=== PATIENT | female | born 1980 | race Caucasian/White ===

== ENCOUNTER 2024-06-25 07:28 | Emergency (ER) | payer BC, SELFPAY ==
--- NOTE | ~2024-06-25 | CT_ITS ---
Non-contrast Head CT History: Head injury Technique: Axial non-contrast imaging of the brain was performed. Dose reduction technique was used on this scan by utilizing automated exposure control and iterative reconstruction technique. The dose -length product (DLP) was 605.33 mGy-cm. Findings: There is no evidence of intracranial hemorrhage, mass lesion, or acute infarct. Brain par enchyma appears normal. The ventricles and subarachnoid spaces are normal in size. The calvarium ap pears normal. The visualized paranasal sinuses and mastoid air cells are clear. Impression: No significant abnormality seen. Reviewed, dictated and finalized at location . Impression: No significant abnormality seen.
--- NOTE | ~2024-06-25 | CT_ITS ---
Noncontrast CT scan of the cervical spine Technique: Multiple contiguous axial [address] images of the cervical spine were obtained and rec onstructed in 2D sagittal and coronal planes on the acquisition scanner. Dose reduction technique was used on this scan by utilizing automated exposure control, adjustment of the mA and/or kV according to patient size. The dose-length product (DLP) was 432.68 mGy-cm. Clinical History: Pain Findings: No fractures or dislocations. There is reversal normal cervical lordosis. There is advance d degenerative disc narrowing at C5-C6, with moderate degenerative disc narrowing at C6-C7. There is bilateral neural foraminal narrowing at C5-C6. No prevertebral soft tissue swelling. Impression: No fracture or subluxation of the cervical spine. Moderate degenerative change at C5-C6, as above. Reviewed, dictated and finalized at [facility]. Impression: No fracture or subluxation of the cervical spine. Moderate degenerative change at C5-C6, as above.
--- OUTSIDE RECORDS SUMMARY | 2024-06-25 07:32 | XMS_ITS | Data Portability ---
Author Organization [facility] [place] Address [address] [place] [address] [place] [address] Assessment Encounter Date Assessment Date Assessment LastModified by Organization Details LastModified Time 06/29/2023 06/29/2023 Annual gynecological exam performed. Patient will come back in a year unless there are new symptoms. [email or web address] Not available 06/29/2023 16:39:05 Plan of Treatment Reminders Order Date Submit Date Provider Last Modified By Organization Details Last Modified Time Details Appointments None recorded. Lab None recorded. Referral None recorded. Procedures None recorded. Surgeries None recorded. Imaging MAMMO, screening, digital, bilateral 2023 024 [facility], [address], [place], [address], 4 05:01:05 Medication Orders None recorded. Patient TargetsNo targets recorded. Patient InstructionsNo instructions recorded. Reason for Referral None Reported. Results Created Date Observation Date Name Description Value Unit Range Abnormal Flag Note LastModifiedBy Organization Detail LastModifiedTime 06/30/19 24 06/30/2023 IMAGE GUIDE D PAP AND HPV REGAR DLESS image guided Pap, HPV regardless of Pap result SEE RESULT S BELOW CASE REPOR T: Cytol ogy Gynec ologi toni Repor t Case: [id number] Autho rosanan g Provi jelani: Mahogany Gil MD Colle cted: 06/29 0806 Order ing Locat ion: [place] [facility] Recei linda: 06/30 0211 First Scree n: Lew Stock , CT Rescr een: Anthony Covarrubias ed, CT Speci men: Scree karl Pap - Image d, Cervi x STATE MENT OF ADEQU ACY: Satis facto ry for evalu ation Trans forma tion zone compo nent absen t The absen ce of an endoc ervic al compo nent was confi rmed by an addit david cherry. FINAL DIAGN OSIS: Negat della for Intra epith elial Lesio n or Kateryna chahal (NIL) . Elect chaparro dean john d by Cristian montoya, Anthony zuleta, CT on 024 at 7:42 PM ----- ----- ----- ----- ----- ----- ----- ----- ----- ----- ----- ----- ----- ----- ----- ----- ----- ---- HPV RESUL TS: HPV mRNA E6/E7 : No HPV mRNA Detec jermaine NOTE: This high risk HPV mRNA assay detec ts fourt een high- risk HPV types (16, 18, 31, 33, 35, 39, 45, 51, 52, 56, 58, 59, 66, 68) witho ut diffe renti ation . COMME NT: This speci men was revie wed by a Cytot echno logis t and/o r Patho logis t (as indic ated in this repor t) after evalu ation using the Thinp rep Imagi ng Syste m. CLINI TONI INFOR MATIO N: Menst rual Statu s: LMP (if appli cable ): Clini toni Histo ry/Pr eviou s Pap: Type of Neopl micha (if appli cable ): Signi fican t Clini toni Findi ngs: Other Histo ry: Hormo cruz (if appli cable ): PAP EDUCA NAOMI L NOTE: The Pap Test is a scree karl test with an inher ent false negat della rate. Liqui d-bas ed sampl ing may decre ase, but will not elimi travis, false negat della resul ts. A negat della resul t does not precl ude the prese nce and/o r devel opmen t of disea se, since the prese nce of abnor mal cells in the sampl e depen ds on the locat ion of the lesio n and sampl ing techn ique. Steve nued regul ar scree karl is the best metho d of cance r preve ntion . If repor jermaine cytol ogic findi ng do not corre late with physi toni and/o r histo rical findi ngs, furth er inves tigat ion is recom francisco j d, as clini julissa warra nted. Not Available [facility] (Lab) [address], [place], [address], 07/06/2023 20:45:34 Result Notes None recorded. Procedures Surgical History Date Name Laterality Status Provider Name and Address Organization Details Recorded Time section completed [facility] 06/29/2023 16:46:32 Imaging Results None recorded. Procedure Notes None recorded. Medical Equipment None Reported. Allergies No known drug allergies Medications Name Sig Start Date Stop Date Status Note LastModified by Organization Details LastModified Time DIANN (28) 3 mg-0.02 mg tablet Take 1 tablet every day by oral route. active Not Available Not Available No t Available Vitals Date Recorded Body weight Body mass index (BMI) Body height Systolic blood pressure Diastolic blood pressure Provider Name and Address Organization Details Last Updated DateTime 06/29/2023 429627.8 g 37 kg/m2 170.18 cm 127 mm[Hg] 83 mm[Hg] [facility] 16:40:25 Social History Question Answer Notes LastModified by Organizat ion Details LastModified Time In The 14 Days Before Symptom Onset, Have You Had Close Contact With A Laboratory-confirmed COVID-19 While That Case Was Ill? No Information not available 06/29/2023 In The 14 Days Before Symptom Onset, Have You Had Close Contact With A Person Who Is Under Investigation For COVID-19 While That Person Was Ill? No Information not available 06/29/2023 Have You Been To An Area Known To Be High Risk For COVID-19? No Information not available 06/29/2023 Sex: Unknown Functional Status None recorded. Mental Status None recorded. Family History Relationship Description Onset Age of this Age Resolved Age Notes LastModified by Organization Details LastModified Time Father No current problems or disability [email or web address] Not available 06/28 16:45:53 Mother No current problems or disability dswayne Not available 06/28 16:45:53 Maternal Grandmother Type 2 diabetes mellitus dswayne Not available 2023 16:46:06 Sister Prediabetes dswayne Not availab le 06/29/2023 16:46:18 Medical History Condition Response Allergies (Food, seasonal, environmental ) N Other N Breast Cancer N Drug/Latex Allergies/Reactions N Blood Transfusion N Dermatologic Disorders N Lung Disease N Defects or Inherited Disease N Breast Problem N Gestational Diabetes N Hematologic disorders N Anesthesia Complications N History of STI Y Deep Vein Thrombosis N Polycystic ovary syndrome N Anxiety Disorder N Autoimmune disease N Arthritis N Infertility N Polyps N Acid Reflux (GERD) N History of abnormal pap N Cancer N Stroke N Varicosities N Neurologic/Epilepsy N Endometriosis N High Cholesterol N Headaches N Fibromyalgia N Kidney Disease N Heart Problems N Kidney or Bladder Problems N Thyroid Problems N GI Problems N Eating Disorder N Anemia N Art (IVF or FET) N Psychiatric Illness N Ovarian Cancer N Diabetes N Pulmonary (TB, Asthma) N Hepatitis/Liver Disease N No Past Medical History N Eczema N Urinary Tract Infection N Abuse/Domestic Violence N Asthma N Trauma/Violence N Depression/ depression N Heart Disease N Pre-Eclampsia N Hypertension N Osteoporosis N Thrombophilias N Gynecological History Statement/Question Response Abnormal Pap Y Date of Last Mammogram Date of LMP STIs/STDs Y HPV Vaccine N Current Control Method BCPs Sexually Active? N Date of Last Pap Smear Sexual Problems? N Desired Control Method None LMP Unknown Obstetrics History GPAL:G 2 P 2 0 0 2 Type Value Full Term 2 Living 2 Total 2 Past Encounters Encounter ID Performer Location Encounter Start Date Encounter Closed Date Diagnosis/Indication Diagnosis SNOMED-CT Code Diagnosis ICD10 Code Diagnosis Note [id number] GUY INMAN MD [facility] [address] [address] 06/29/2023 16:26:58 07/01/2023 13:41:47 Screening mammography 59894826 Z12.31 Gynecologi c examination 49598808 Z01.419 Z11.51 Well woman care- Cervical cancer screening: Pap smear obtained today, will follow up on the results with the patient as they become available- Breast cancer screening: mammogram ordered- Colon cancer screening: does not qualify- HPV immunizati on: desires- STD testing: declines- hereditary cancer screening: does not qualify for testing Health Concerns Section Related Observation LastModified by Organization Detai ls LastModified Time None Recorded Concern Status LastModified by Organization Details LastModified Time None Recorded Advance Directives Directive None Recorded Payers Encounter Date Sequence Insurance Name Policy Number Policy Urrutia Covered Member ID Urrutia Member ID Guarantor Name 06/29/2023 1 [employer]: ([place]) [id number] Crystal Greenwoodjustine [id number] Crystal Greenwoodjustine Notes Date Note Type Note Provider Name and Address Organization Details Recorded Time 06/29/2023 text/html Presents today f or her annual well-woman exam. Last [employer] a few years ago. Denies abnormal vaginal discharge. She is rarely sexually active and reports increased vaginal dryness. She is not concerned about this problem. She is using Rosmer[employer] for contraception, and she states that she is satisfied with this method. She has not noticed any changes or masses in her breasts. Amenorrheic since 10 year old was born, on [place]. Has hx of tubal ligation. No intermenstrual spotting. Hx of abnormal pap smear, at age 19, normal since then. No PMH. PSH: c section x2, tubal ligation, cryotherapy for abnormal pap smear FamHx: no fam hx of breast, colon or ovarian cancer GUY INMAN MD [address], [place], [address], [facility] 06/30/2023 21:09:03 OBGyn Episode Ob Episode Information Episode Created Date Number of Fetuses Patient Bloodtype Patient rh Status Prepregnancy Weight lbs Domestic Partner Domestic Partner Phone Father Name Linux System Engineer Status 06/29/19 24 1 CLOSED Fetus Data First Name Last Name Admitted to NICU Weight (g) Sex Living Outcome Pediatric Complications Fetus ID Race Codes Race Delivery Type 3175.14 4 M Full Term [id number] Repeat Augusto Calculation Initial Augusto Date Initial Exam Date Initial Exam Provider Initial Ultrasound Date Last Menstrual Period Date Ultra Sound Weeks Gestation 0 Eighteen To Twenty Week Augusto Update Ultra Sound Date Fundal Height At Umbil Quickening Date Ultra Sound Latest Weeks Gestation Final Augusto Confirmed By Final Augusto Confirmed Date Final Augusto Date Ultra Sound Latest Days Gestation 0 0 Menstrual History Last Menstrual Date Menses Monthly On Bcp Conception Prior Menses Frequency Hcg Plus Date Menarche Onset Age Delivery Information Delivery Date Delivery Type Labor Anesthesia Weeks Gestation Incision Type Labor Labor Length Hrs Delivered By Post Complications Tubal Sterilization Discharge Date Comments 1 Discharge Information Feeding Method Contraceptive Method Maternal HG B and HCT Levels Ob Episode Information Episode Created Date Number of Fetuses Patient Bloodtype Patient rh Status Prepregnancy Weight lbs Domestic Partner Domestic Partner Phone Father Name Linux System Engineer Status 06/29/19 24 1 CLOSED Fetus Data First Name Last Name Admitted to NICU Weight (g) Sex Living Outcome Pediatric Complications Fetus ID Race Codes Race Delivery Type 3089.86 [id number] F Full Term [id number] Primary Augusto Calculation Initial Augusto Date Initial Exam Date Initial Exam Provider Initial Ultrasound Date Last Menstrual Period Date Ultra Sound Weeks Gestation 0 Eighteen To Twenty Week Augusto Update Ultra Sound Date Fundal Height At Umbil Quickening Date Ultra Sound Latest Weeks Gestation Final Augusto Confirmed By Final Augusto Confirmed Date Final Augusto Date Ultra Sound Latest Days Gestation 0 0 Menstrual History Last Menstrual Date Menses Monthly On Bcp Conception Prior Menses Frequency Hcg Plus Date Menarche Onset Age Delivery Information Delivery Date Delivery Type Labor Anesthesia Weeks Gestation Incision Type Labor Labor Length Hrs Delivered By Post Complications Tubal Sterilization Discharge Date Comments 8 Discharge Information Feeding Method Contraceptive Method Maternal HG B and HCT Levels
[2024-06-25 07:33] VITALS: BP 134/75; PULSE 79; RESP 18; TEMP 36.4; O2SAT 96
--- OUTSIDE RECORDS SUMMARY | 2024-06-25 07:33 | XMS_ITS | Data Portability ---
Author Organization [facility] [employer], Main Office Address [address] [place] [address] Care Team Providers Care System Dispatcher Name Role Phone HUA FUNG Primary Care Provider HUA FUNG Referring Provider [phone] Assessment No assessment recorded. Plan of Treatment Reminders Order Date Submit Date Provider Last Modified By Organization Details Last Modified Time Details Appointments None recorded. Lab HbA1c (hemoglobin A1c), blood 2024 025 [facility], [address] , [place], [address], 5 10:05:55 lipid panel, serum 2024 025 [facility], [address], [place], [address], 5 10:05:56 TSH, serum or plasma 2024 025 [facility], [address], [place], [address], 5 10:05:55 CMP, serum or plasma 2024 025 [facility], [address], [place], [address], 5 10:05:56 CBC w/ auto diff 2024 025 [facility], [address], [place], [address], 5 10:05:54 uric acid, serum or plasma 2023 024 [email or web address] [facility], [address], [place], [address], 4 08:27:58 lipid panel, serum 2023 024 [email or web address] [facility], [address], [place], [address], 4 08:27:59 HbA1c (hemoglobin A1c), blood 2023 024 [email or web address] [facility], [address], [place], [address], 4 08:27:59 CMP, serum or plasma 2023 024 [email or web address] [facility], [address], [place], [address], 4 08:27:59 lipid panel, serum [address] (Lab), [address] [place], [address], 3 15:21:02 TSH, serum or plasma [address] (Lab), [address] [place], [address], 3 15:23:21 CBC [address] (Lab), [address] [place], [address], 3 15:24:15 CMP, serum or plasma [address] (Lab), [address] [place], [address], 3 15:23:47 Referral None recorded. Procedures None recorded. Surgeries None recorded. Imaging MAMMO, screening, digital, bilateral 2024 025 [email or web address] [facility], [address], [address] [address], [place], [address], 5 10:24:38 Medication Orders Wegovy 0.5 mg/0.5 mL subcutaneou s pen injector 2024 025 ANNELISE [id number], [address], [place], [id number], 5 10:06:07 triamcinolo ne acetonide 40 mg/mL suspension for injection 2024 025 [email or web address] Not available 5 15:22:52 Wegovy 0.5 mg/0.5 mL subcutaneou s pen injector 2023 024 [email or web address] 7 [facility] [address] In [facility], [address] [place], [address], 5 09:48:04 Creon 36,000 unit-114,00 0 unit-180,00 0 unit capsule,del ayed release 2022 023 [email or web address] 5 [id number], [address], [place], [id number], 3 14:48:27 Zenpep 40,000 unit-126,00 0 unit-168,00 0 unit capsule,del ayed release 2022 023 [email or web address] 7 [facility][id number], [address], [place], [id number], 5 09:49:19 Wegovy 0.25 mg/0.5 mL subcutaneou s pen injector 2022 023 [email or web address] 7 [id number], [address] [facility], [place], [place], [id number], 09:48:00 Patient Targets Encounter Date Encounter Id Patient Goals Patient Target Last Modified By Organization Details Last Modified Time [facility]vs pharmy ginger chowdary [email or web address] Not available 07/06/2023 16:06:45 Patient InstructionsNo instructions recorded. Reason for Referral None Reported. Results Created Date Observation Date Name Description Value Unit Range Abnormal Flag Note LastModifiedBy Organization Detail LastModifiedTime 11/12/19 22 11/17/2021 PAP THINP REP LB, RFX HPV diagnosis: kathy PEÑA FOR INTRA EPITH ALEXSANDER Foss OR SELAM MEIER . Not Available [facility] (Lab) [address] [place], [address], 11/17/2021 10:12:06 11/12/19 22 11/17/2021 PAP THINP REP LB, RFX HPV specimen adequacy: kathy Steinberg Satis factjustine rangel for evalu ation . No endoc ervic al compo nent is id entif ied. Not Available [facility] (Lab) [address] [place], [address], 11/17/2021 10:12:06 11/12/19 22 11/17/2021 PAP THINP REP LB, RFX HPV performed by: kathy john Cytokenzie espino (ASCP ) Not Available [facility] (Lab) [address] [place], [address], 11/17/2021 10:12:06 11/12/19 22 11/17/2021 PAP THINP REP LB, RFX HPV . . Not Available [facility] (Lab) [address] [place], [address], 11/17/2021 10:12:06 11/12/19 22 11/17/2021 PAP THINP REP LB, RFX HPV note: commen t The Pap smear is a scree karl test desig sreekanth to aid in the detec tion of elias ligna nt and malig nant condi tions of the uteri ne cervi x. It is not a diagn ostic proce dure and shoul d not be used as the sole means of detec ting cervi toni cance r. Both false -posi tive and false -nega tive repor ts do occur . . Not Available [facility] (Lab) [address] [place], [address], 11/17/2021 10:12:06 11/12/19 22 11/17/2021 PAP THINP REP LB, RFX HPV test methodology: arabellaen t This liqui d based ThinP rep(R ) pap test was scree sreekanth with the use of an image guide d systida pendleton. Not Available [facility] (Lab) [address] [place], [address], 11/17/2021 10:12:06 11/12/19 22 11/17/2021 PAP THINP REP LB, RFX HPV . commen t The HPV DNA refle x crite alise were not met with this speci men resul t there fore, no HPV testi ng was perfo rmed. . Perfo rmed at: [facility] [place] [address] , [place] [address] Lab Direc tor: Jona prieto MD, Phone : [phone] [facility] (Lab) [address] [place], [address], 11/17/2021 10:12:06 11/12/19 22 11/11/2021 pregn pamella test, urine HCG negati ve Not Available [facility] , [place], [address], 11/11/2021 17:09:52 09/02/19 23 09/01/2022 CBC W/O DIFFE CHERELLE AL white blood cells 10.4 x10'3 /uL 4.2-10 .[address] [facility] (Lab) [address] [place], [address], 09/01/2022 19:31:09 09/02/19 23 09/01/2022 CBC W/O DIFFE RENTI AL red blood cells 4.21 x10'6 /uL 3.80-5 .[address] [facility] (Lab) [address] [place], [address], 09/01/2022 19:31:09/02/19 23 09/01/2022 CBC W/O DIFFE RENTI AL hemoglobin 12.0 g/dL 12.0-1 5.[address] [facility] (Lab) [address] [place], [address], 09/01/2022 19:31:09/02/19 23 09/01/2022 CBC W/O DIFFE RENTI AL hematocrit 37.6 % 35.7-4 5.[address] [facility] (Lab) [address] [place], [address], 09/01/2022 19:31:09/02/1909/01/2022 CBC W/O DIFFE RENTI AL mean red cell volume 89.3 fL 82.0-9 9.[address] [facility] (Lab) [address] [place], [address], 09/01/2022 19:31:09 09/02/19 23 09/01/2022 CBC W/O DIFFE RENTI AL mean red cell hemoglobin 28.5 pg 27.0-3 3.[address] [facility] (Lab) [address] [place], [address], 09/01/2022 19:31:09 09/02/19 23 09/01/2022 CBC W/O DIFFE RENTI AL mean RBC HGB concentratio n 31.9 g/dL 31.0-3 6.[address] [facility] (Lab) [address] [place], [address], 09/01/2022 19:31:09 09/02/19 23 09/01/2022 CBC W/O DIFFE RENTI AL red cell distribution width 13.3 % 11.8-1 5.[address] [facility] (Lab) [address] [place], [address], 09/01/2022 19:31:09 09/02/19 23 09/01/2022 CBC W/O DIFFE RENTI AL platelets 417 x10'3 /uL 150-40 0 high Not Available [facility] (Lab) [address] [place], [address], 09/01/2022 19:31:09 09/02/19 23 09/01/2022 CBC W/O DIFFE RENTI AL mean platelet volume 9.5 fL 9.0-12 .[address] [facility] (Lab) [address] [place], [address], 09/01/2022 19:31:09 09/02/19 23 09/01/2022 COMPR EHENS MARIANA METAB OLIC PANEL sodium 139 mmol/ L 137-14 [address] [facility] (Lab) [address] [place], [address], 09/01/2022 20:03:03 09/02/19 23 09/01/2022 COMPR EHENS MARIANA METAB OLIC PANEL potassium 3.6 mmol/ L 3.5-5. [address] [facility] (Lab) [address] [place], [address], 09/01/2022 20:03:03 09/02/19 23 09/01/2022 COMPR EHENS MARIANA METAB OLIC PANEL chloride 103 mmol/ L 98-[address] [facility] (Lab) [address] [place], [address], 09/01/2022 20:03:03 09/02/19 23 09/01/2022 COMPR EHENS MARIANA METAB OLIC PANEL carbon dioxide 23 mmol/ L 22-[address] [facility] (Lab) [address] [place], [address], 09/01/2022 20:03:03 09/02/19 23 09/01/2022 COMPR EHENS MARIANA METAB OLIC PANEL anion gap 16.6 mmol/ L 14-[address] [facility] (Lab) [address] [place], [address], 09/01/2022 20:03:03 09/02/19 23 09/01/2022 COMPR EHENS MARIANA METAB OLIC PANEL glucose 98 mg/dL 70-[address] [facility] (Lab) [address] [place], [address], 09/01/2022 20:03:03 09/02/19 23 09/01/2022 COMPR EHENS MARIANA METAB OLIC PANEL BUN 13 mg/dL 8-[address] [facility] (Lab) [address] [place], [address], 09/01/2022 20:03:03 09/02/19 23 09/01/2022 COMPR EHENS MARIANA METAB OLIC PANEL creatinine 0.69 mg/dL 0.66-1 .[address] [facility] (Lab) [address] [place], [address], 09/01/2022 20:03:03 09/02/19 23 09/01/2022 COMPR EHENS MARIANA METAB OLIC PANEL GFR >60 Refer ence Range : [place] ge GFR Healt hy Adult : >60 mL/mi n/1.7 3 m2 Chron ic Kidne y Disea se: 15-60 mL/mi n/1.7 3 m2 Kidne y Failu re: <15/m L/min /1.73 m2 www.n iddk. nih.g ov The MDRD study equat ion has not been valid ated in child naresh <18 years of age; pregn ant women ; the elder ly >85 years of age; or in some racia l or ethni c subgr oups, such as Hisrosendo nics. Outsi de the valid ated eliezer eters , estim ated GFR is less accur ate, requi ring clini toni judgm ent on a case- by-ca se basis . Clini toni inter preta tion for other races and ages must be made by the clini dede. The MDRD study equat ion has not been valid ated for the evalu ation of serum creat inine relat ed to nutri allyssa l statu s or medic ation usage . For perso ns <18 years of age, a pedia tric GFR calcu lator is avail able on the [facility] websi te: https ://gurvinder w.tray beckham.o rg/pr ofess ional s/kdo qi/gf r_cal culat or Not Available [facility] (Lab) [address] [place], [address], 09/01/2022 20:03:03 09/02/19 23 09/01/2022 COMPR EHENS MARIANA METAB OLIC PANEL alkaline phosphatase 83 U/L 38-126 Not Available [facility] (Lab) [address] [place], [address], 09/01/2022 20:03:03 09/02/19 23 09/01/2022 COMPR EHENS MARIANA METAB OLIC PANEL alanine aminotransfe rase 26 U/L 0-35 Not Available [facility] (Lab) [address] [place], [address], 09/01/2022 20:03:03 09/02/19 23 09/01/2022 COMPR EHENS MARIANA METAB OLIC PANEL aspartate aminotransfe rase 25 U/L 15-37 Not Available [facility] (Lab) [address] [place], [address], 09/01/2022 20:03:03 09/02/19 23 09/01/2022 COMPR EHENS MARIANA METAB OLIC PANEL bilirubin, total 0.40 mg/dL 0.20-1 .[address] [facility] (Lab) [address] [place], [address], 09/01/2022 20:03:03 09/02/19 23 09/01/2022 COMPR EHENS MARIANA METAB OLIC PANEL calcium 9.5 mg/dL 8.4-10 .[address] [facility] (Lab) [address] [place], [address], 09/01/2022 20:03:03 09/02/19 23 09/01/2022 COMPR EHENS MARIANA METAB OLIC PANEL total protein 7.4 g/dL 6.3-8. [address] [facility] (Lab) [address] [facility] [place], [address], 09/01/2022 20:03:03 09/02/19 23 09/01/2022 COMPR EHENS MARIANA METAB OLIC PANEL albumin 4.4 g/dL 3.4-5. [address] [facility] (Lab) [address] [place], [address], 09/01/2022 20:03:03 09/02/19 23 09/01/2022 COMPR EHENS MARIANA METAB OLIC PANEL globulin 3.0 g/dL 2.6-4. [address] [facility] (Lab) [address] [place], [address], 09/01/2022 20:03:03 09/02/19 23 09/01/2022 COMPR EHENS MARIANA METAB OLIC PANEL A/G ratio 1.5 ratio 1.0-2. [address] [facility] (Lab) [address] [facility] [place], [address], 09/01/2022 20:03:03 09/02/19 23 09/01/2022 LIPID PANEL cholesterol 177 mg/dL 140-19 9 [facility] WINST[facility] NSUS RECOM MENDA TION FOR NYASIA STERO L: ADULT CHILD LOW RISK: <200 <170 BORDE RLINE : <200- 239 ----- HIGH RISK: >240 >200 Not Available [facility] (Lab) [address] [place], [address], 09/01/2022 20:02:52 09/02/19 23 09/01/2022 LIPID PANEL triglyceride s 155 mg/dL 0-150 high NIH W[facility] NSUS REPOR T RECOM MENDA TION FOR TRIGL YCERI JORGE: ADULT CHILD LOW RISK: <150 ----- BODER LINE: 150-1 99 ----- HIGH RISK: >200 ----- Not Available [facility] (Lab) [address] [place], [address], 09/01/2022 20:02:52 09/02/19 23 09/01/2022 LIPID PANEL HDL cholesterol 98 mg/dL 40- Not Available [facility] (Lab) [address] [place], [address], 09/01/2022 20:02:52 09/02/19 23 09/01/2022 LIPID PANEL LDL cholesterol, calculated 48 mg/dL 0-130 [facility] NSUS REPOR T RECOM MENDA TIONS FOR LDL: ADULT CHILD LOW RISK <130 <110 (OPTI MAL LDL) <100 ----- BORDE RLINE : 130-1 59 ----- HIGH RISK: >160 >130 A TRIGL YCERI DE RESUL T >400 INVAL IDATE S THE CALCU LATIO N FOR LDL FRACT IONAT ION - THE LDL RESUL T WILL NOT BE REPOR EWA. Not Available [facility] (Lab) [address] [place], [address], 09/01/2022 20:02:52 09/02/19 23 09/01/2022 TSH thyroid-stim ulating hormone 0.798 uIU/m L 0.465- 4.[address] [facility] (Lab) [address] [place], [address], 09/01/2022 22:49:38 07/18/19 24 07/19/2023 LIPID PANEL , STAND JOSEP cholesterol, total 182 mg/dL <200 normal Not Available [facility] [address] [address] [place], [address], 07/19/2023 02:33:48 07/18/19 24 07/19/2023 LIPID PANEL , STAND JOSEP HDL cholesterol 78 mg/dL > or = 50 normal Not Available [facility] [address] [address] [place], [address], 07/19/2023 02:33:48 07/18/19 24 07/19/2023 LIPID PANEL , STAND JOSEP triglyceride s 155 mg/dL <150 high Not Available [facility] [address] [address] [place], [address], 07/19/2023 02:33:48 07/18/19 24 07/19/2023 LIPID PANEL , STAND JOSEP LDL-choleste rol 79 mg/dL _(toni c) normal Refer ence range : <100 Melia able range <100 mg/dL for prima ry preve ntion ; <70 mg/dL for patie nts with CHD or diabe tic patie nts with > or = 2 CHD risk facto rs. LDL-C is now calcu lated using the Suzanne n-Hop kins davidu lauren n, which is a valid ated novel clintono roro gomez r accur acy than the Fried alfred equat ion in the estim ation of LDL-C . Suzanne foss SS et al. ZACK. 2013; 310(1 9): 2061- 2068 (http ://ed ucati on.Qu Kiera belles. com/f aq/FA Q164) Not Available [facility] [address] [address] [place], [address], 07/19/2023 02:33:48 07/18/19 24 07/19/2023 LIPID PANEL , STAND JOSEP chol/HDLC ratio 2.3 (calc ) <5.0 normal Not Available [address], [address], 07/19/2023 02:33:48 07/18/19 24 07/19/2023 LIPID PANEL , STAND JOSEP non HDL cholesterol 104 mg/dL _(toni c) <130 normal For patie nts with diabe machelle plus 1 major ASCVD risk facto r, treat ing to a non-H DL-C goal of <100 mg/dL (LDL- C of <70 mg/dL ) is consi albarod a thera peuti c optio n. Not Available [address], [address], 07/19/2023 02:33:48 07/18/19 24 07/19/2023 URIC ACID uric acid 5.2 mg/dL 2.5-7. 0 normal Thera peuti c targe t for gout patie nts: <6.0 mg/dL Not Available [address] [place], [address], 07/19/2023 02:33:50 07/18/19 24 07/19/2023 COMPR EHENS MARIANA METAB OLIC PANEL glucose 95 mg/dL 65-139 normal Non-f astin g refer ence inter ab Not Available [address] [place], [address], 07/19/2023 02:33:51 07/18/19 24 07/19/2023 COMPR EHENS MARIANA METAB OLIC PANEL urea nitrogen (BUN) 14 mg/dL 7-25 normal Not Available [address], [address], 07/19/2023 02:33:51 07/18/19 24 07/19/2023 COMPR EHENS MARIANA METAB OLIC PANEL creatinine 0.71 mg/dL 0.50-0 .99 normal Not Available [address], [place], [address], 07/19/2023 02:33:51 07/18/19 24 07/19/2023 COMPR EHENS MARIANA METAB OLIC PANEL eGFR 107 mL/mi n/1.7 3m2 > or = 60 normal Not Available [address], [address], 07/19/2023 02:33:51 07/18/19 24 07/19/2023 COMPR EHENS MARIANA METAB OLIC PANEL BUN/creatini ne ratio SEE NOTE: (calc ) 6-22 Not Repor ewa: BUN and Creat inine are withi n refer ence range . Not Available [address], [address], 07/19/2023 02:33:51 07/18/19 24 07/19/2023 COMPR EHENS MARIANA METAB OLIC PANEL sodium 137 mmol/ L 135-14 6 normal Not Available [address], [address], 07/19/2023 02:33:51 07/18/19 24 07/19/2023 COMPR EHENS MARIANA METAB OLIC PANEL potassium 3.8 mmol/ L 3.5-5. 3 normal Not Available [address], [address], 07/19/2023 02:33:51 07/18/19 24 07/19/2023 COMPR EHENS MARIANA METAB OLIC PANEL chloride 103 mmol/ L 98-110 normal Not Available [facility] [address], [address], 07/19/2023 02:33:51 07/18/19 24 07/19/2023 COMPR EHENS MARIANA METAB OLIC PANEL carbon dioxide 24 mmol/ L 20-32 normal Not Available [facility] [address], [address], 07/19/2023 02:33:51 07/18/19 24 07/19/2023 COMPR EHENS MARIANA METAB OLIC PANEL calcium 9.4 mg/dL 8.6-10 .2 normal Not Available [address], [address], 07/19/2023 02:33:51 07/18/19 24 07/19/2023 COMPR EHENS MARIANA METAB OLIC PANEL protein, total 6.7 g/dL 6.1-8. 1 normal Not Available [address], [address], 07/19/2023 02:33:51 07/18/19 24 07/19/2023 COMPR EHENS MARIANA METAB OLIC PANEL albumin 4.1 g/dL 3.6-5. 1 normal Not Available [address], [address], 07/19/2023 02:33:51 07/18/19 24 07/19/2023 COMPR EHENS MARIANA METAB OLIC PANEL globulin 2.6 g/dL_ (calc ) 1.9-3. 7 normal Not Available [address], [address], 07/19/2023 02:33:51 07/18/19 24 07/19/2023 COMPR EHENS MARIANA METAB OLIC PANEL albumin/glob ulin ratio 1.6 (calc ) 1.0-2. 5 normal Not Available [address], [address], 07/19/2023 02:33:51 07/18/19 24 07/19/2023 COMPR EHENS MARIANA METAB OLIC PANEL bilirubin, total 0.4 mg/dL 0.2-1. 2 normal Not Available [address], [address], 07/19/2023 02:33:51 07/18/19 24 07/19/2023 COMPR EHENS MARIANA METAB OLIC PANEL alkaline phosphatase 62 U/L 31-125 normal Not Available [address] [address] [place], [address], 07/19/2023 02:33:51 07/18/19 24 07/19/2023 COMPR EHENS MARIANA METAB OLIC PANEL AST 15 U/L 10-30 normal Not Available [address] [address] [place], [address], 07/19/2023 02:33:51 07/18/19 24 07/19/2023 COMPR EHENS MARIANA METAB OLIC PANEL ALT 19 U/L 6-29 normal Not Available [address] [address] [place], [address], 07/19/2023 02:33:51 07/18/19 24 07/19/2023 HEMOG LOBIN A1C hemoglobin A1C 5.4 %_of_ total _HGB <5.7 normal For the purpo se of scree karl for the prese nce of diabe machelle: <5.7% Consi stent with the absen ce of diabe machelle 5.7-6 .4% Consi stent with incre ased risk for diabe machelle (pred iabet es) > or =6.5% Consi stent with diabe machelle This assay resul t is consi stent with a decre ased risk of diabe machelle. Curre ntly, no conse nsus exist s davonte francisco use of hemog lobin A1c for diagn osis of diabe machelle in child naresh. Accor ding to Ameri can Diabe machelle Assoc iatio n (ADA) guide lines , hemog lobin A1c <7.0% repre sents optim al contr ol in non-p regna nt diabe tic patie nts. Diffe rent metri cs may apply to speci fic patie nt popul ation s. Stand ards of Medic al Care in Diabe machelle(A DA). This test was perfo rmed on the Emmanuel tyron c503 platf orm. Effec tive , cory prieto in test platf orms from the Abbot t Archi tect to the Emmanuel tyron c503 may have shift ed HbA1c resul ts edmund red to histo rical resul ts. Based on labor atory valid ation testi ng condu cted at [facility] , the Emmanuel platf orm relat mariana to the Abbot t platf orm had an avera ge incre ase in HbA1c value of < or = 0.3%. This diffe rence is withi n accep ewa varia bilit y estab lishe d by the Natio nal [employer]co hemog lobin Stand ardiz ation Progr am. Note that not all indiv idual s will have had a shift in their resul ts and direc t edmund rison s betwe en histo rical and curre nt resul ts for testi ng condu cted on diffe rent platf orms is not recom francisco j d. Not Available [facility] [address] [address] [place], [address], 07/19/2023 02:33:52 Result Notes None recorded. 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 Procedures Surgical History Date Name Laterality Status Provider Name and Address Organization Details Recorded Time cholecystectomy completed Cami Michele RN [facility] [employer] 08/04/2022 14:31:09 Imaging Results None recorded. Procedure Notes None recorded. Medical Equipment None Reported. Allergies No known drug allergies Medications Name Sig Start Date Stop Date Status Note LastModified by Organization Details LastModified Time Cholestyram ine Light 4 gram powder for suspension in a packet MIX 1 PACKET IN LIQUID AND DRINK TWICE DAILY WITH FOOD 06/20 completed Not Available Not Available Not Available betamethaso ne valerate 0.1 % topical cream APPLY TOPICALLY TO THE AFFECTED AREA EVERY DAY NEEDED FOR ITCHING 2024 active Not Available Not Available Not Avai lable triamcinolo ne acetonide 40 mg/mL suspension for injection Take 60 mg every day by injection route as directed for 1 day. 2024 active Not Available Not Available Not Avai lable cholestyram ine (with sugar) 4 gram powder for susp in a packet MIX AND DRINK 1 PACKET PO BID DIRECTED 06/07 completed Not Available Not Available Not Available drospirenon e 3 mg-ethinyl estradiol 0.02 mg tablet TAKE 1 TABLET BY MOUTH DAILY active Not Available Not Available No t Available Cholestyram ine Light 4 gram oral powder MIX 4 GRAMS INTO 8 OUNCES OF LIQUID AND DRINK TWICE DAILY WITH FOOD 2024 active Not Available Not Available Not Avai lable Creon 36,000 unit-114,00 0 unit-180,00 0 unit capsule,del ayed release Take 1 capsule 3 times a day by oral route with meals. 2022 active Not Available Not Available Not Avai lable Zenpep 40,000 unit-126,00 0 unit-168,00 0 unit capsule,del ayed release Take 1 capsule 3 times a day by oral route with meals. 06/20 completed Not Available Not Available Not Available Wegovy 0.25 mg/0.5 mL subcutaneou s pen injector Inject 0.25 mg every week by subcutane ous route for 90 days. 06/20 completed Not Available Not Available Not Available Wegovy 0.5 mg/0.5 mL subcutaneou s pen injector Inject by subcutane ous route for 28 days. active Not Available Not Available No t Available Zepbound 2.5 mg/0.5 mL subcutaneou s pen injector Inject by subcutane ous route for 28 days. active Not Available Not Available No t Available Vitals Date Recorded Body mass index (BMI) Body height Oxygen saturation Oxygen saturation in Arterial blood by Pulse oximetry Heart rate Body temperature Body weight Systolic blood pressure Diastolic blood pressure Provider Name and Address Organization Details Last Updated DateTime 2 36.5 kg/m2 170.18 cm 100 % 100 % 88 /min 97 [degF] 859143. 02 g 140 mm[Hg] 90 mm[Hg] Not Available [facility] 3 22:26:34 Date Recorded Body height Body mass index (BMI) Body weight Body temperature Heart rate Oxygen saturation Oxygen saturation in Arterial blood by Pulse oximetry Systolic blood pressure Diastolic blood pressure Provider Name and Address Organization Details Last Updated DateTime 3 170.18 cm 36.5 kg/m2 839831. 02 g 97.7 [degF] 97 /min 96 % 96 % 142 mm[Hg] 88 mm[Hg] BARBER Patel [facility] [employer] 3 14:29:31 Date Recorded Body height Body mass index (BMI) Body weight Body temperature Heart rate Oxygen saturation Oxygen saturation in Arterial blood by Pulse oximetry Systolic blood pressure Diastolic blood pressure Provider Name and Address Organization Details Last Updated DateTime 3 170.18 cm 35.4 kg/m2 498251. 88 g 98.5 [degF] 94 /min 98 % 98 % 116 mm[Hg] 78 mm[Hg] BARBER Patel [place] [employer] 3 14:21:14 Date Recorded Body height Body mass index (BMI) Body weight Body temperature Heart rate Oxygen saturation Oxygen saturation in Arterial blood by Pulse oximetry Systolic blood pressure Diastolic blood pressure Provider Name and Address Organization Details Last Updated DateTime 4 170.18 cm 35.9 kg/m2 393141. 65 g 97.9 [degF] 94 /min 98 % 98 % 128 mm[Hg] 82 mm[Hg] Becky Burdick RN [facility] 4 16:02:33 Date Recorded Body height Body mass index (BMI) Body weight Body temperature Heart rate Oxygen saturation Oxygen saturation in Arterial blood by Pulse oximetry Systolic blood pressure Diastolic blood pressure Provider Name and Address Organization Details Last Updated DateTime 5 170.18 cm 37.1 kg/m2 461101. 39 g 97.3 [degF] 81 /min 97 % 97 % 136 mm[Hg] 78 mm[Hg] Luz Garnica CNA [facility] [place] [facility] 5 09:47:17 Social History Question Answer Notes LastModified by Organizat ion Details LastModified Time Tobacco Smoking Status Never Smoker Not Available [facility] 05/05/2022 22:26:11 What Is Your Level Of Alcohol Consumption? Occasional [id number] Information not available 05/05/2022 What Is Your Level Of Caffeine Consumption? Occasional [id number] Information not available 05/05/2022 What Type Of Diet Are You Following? REGULAR [id number] Information not available 05/05/2022 Are You Following A Low Salt Diet? No [id number].[id number] Information not available 05/05/2022 Have You Ever Been Counseled For Unhealthy Alcohol Use? No [id number].[id number] Information not available 05/05/2022 Do You Feel Stressed (tense, Restless, Nervous, Or Anxious, Or Unable To Sleep At Night)? [id number] [email or web address] Information not available 08/04/2022 Do You Use Any Illicit Or Recreational Drugs? No [id number].[id number] Information not available 05/05/2022 Has Tobacco Cessation Counseling Been Provided? No [id number].[id number] [id number] Information not available 05/05/2022 Have You Recently Traveled Abroad? No [id number].[id number] Information not available 05/05/2022 Do You Have Any Dietary Restrictions? Yes No Milk MIGRATION.[id number] Information not available 05/05/2022 Do You Or Have You Ever Used Any Other Forms Of Tobacco Or Nicotine? No [id number].[id number] 8439 Information not available 05/05/2022 Sex: Unknown Functional Status Question Answer Note LastModified by Organizat ion Details LastModified Time What is your exercise level? Moderate [id number] Information not available 05/05/2022 Mental Status None recorded. Family History Relationship Description Onset Age of this Age Resolved Age Notes LastModified by Organization Details LastModified Time Paternal Grandmother Diabetes mellitus [id number] Not available 05/05/2022 22:26:20 Medical History No medical history recorded. Gynecological History Statement/Question Response Menses Monthly N Abnormal Pap N Date of Last Pap Current Control Method BCPs Obstetrics History GPAL:G 2 P 2 0 0 2 Type Value Full Term 2 Living 2 Total 2 Immunizations Vaccine Type Date Status Note Provider Nam e and Address Organization Details Recorded Time Influenza, split virus, quadrivalent, PF 01/26/2021 completed Not Available [facility] 22:27:25 Past Encounters Encounter ID Performer Location Encounter Start Date Encounter Closed Date Diagnosis/Indication Diagnosis SNOMED-CT Code Diagnosis ICD10 Code Diagnosis Note [id number] [facility] [place] [facility] [place] [address] [place] [address] [address] [place] [address] 01/26/2021 00:00:00 01/26/2021 18:11:06 [id number] [facility] [place] [facility] [place] [address] [place] [address] [address] [place] [address] 03/17/2021 00:00:00 03/17/2021 18:18:44 [id number] [facility] [place] Primary [facility] [place] [address] [place] [address] [address] [place] [address] 11/11/2021 00:00:00 11/11/2021 18:06:36 [id number] AKIL Rivers [facility] [place] [address] [facility] [address] [place] [address] 08/04/2022 14:21:59 08/04/2022 15:26:50 Body mass index 30+ - obesity 061824247 Z68.36 ChronicNot improved despite report of dieting/li festyle changes.Ad vised eat 3 meals daily with 1-2 healthy snacks, eliminate caloric drinks, no grazing btw meals, reduce packaged foods, portion control, modificati on of cooking style, low fat/low sugar items, 30 minutes of exercise at least 3x/week, reduce emotional/ stress eating, increase fruits/veg etables, take 15-20 minutes to eat.Encour aged pt to keep food diary for the next 2 weeks. Try to keep daily calorie count btw 1293-0303 calories. Gave meal planning handout. May need to consider referral to hosiery pairer/ nutritioni st as well.Will give trial of Wegovy. Pt aware this will likely require PA. [id number] AKIL Rivers [facility] Primary Care [facility] [address] [facility] [address] [place] [address] 09/01/2022 14:14:31 09/01/2022 17:22:14 Body mass index 30+ - obesity 662611725 Z68.36 ChronicNot improved despite report of dieting/li festyle changes.Ad vised eat 3 meals daily with 1-2 healthy snacks, eliminate caloric drinks, no grazing btw meals, reduce packaged foods, portion control, modificati on of cooking style, low fat/low sugar items, 30 minutes of exercise at least 3x/week, reduce emotional/ stress eating, increase fruits/veg etables, take 15-20 minutes to eat.Wegovy approved by insurance carrier, pt trying to find pharmacy that has medication in stock. Postcholec ystectomy syndrome 11259712 K91.5 ChronicRec ommend enzyme replacemen t, probiotics , avoidance of trigger foods, increased fiber.Pt given samples of Creon and Zenpep [id number] FRANCIA Cordova [facility] [place] Primary Care [facility] [address] [facility] [address] [place] [address] 07/06/2023 15:52:07 07/06/2023 17:45:24 Body mass index 30+ - obesity 288974883 Z68.30 -pt has hx of using wegovy with positive results-3 lb weight gain since last visit, has been unable to find wegovy-Now knows a pharm that told her they would hold some for her-wegovy 0.5mg sent-labs obtained Gout 24446697 M10.9 -notes pain to left great toe on occ-lab obtained [id number] AKIL Gaytan [facility] [address] [place] [address] 06/20/2024 09:38:46 06/20/2024 10:24:38 Adult health examination 664558909 Z00.00 [facility] is [facility] maintenanc e reviewedDi scussed diet and exercisePa tient questions answered Body mass index 30+ - obesity 213208732 Z68.30 Practicing low carb/fat, high protein dietPracti cing daily exercisePr eviously did well on Wegovy Right side sciatica 3202 820176 74019 M54.31 Injection given in office without complicati onDiscusse d heat therapy, stretching , massage Screening mammography 24 001502 Z12.31 Health Concerns Section Related Observation LastModified by Organization Detai ls LastModified Time None Recorded Concern Status LastModified by Organization Details LastModified Time None Recorded Advance Directives Directive None Recorded Payers Encounter Date Sequence Insurance Name Policy Number Policy Urrutia Covered Member ID Urrutia Member ID Guarantor Name 08/04/2022 1 [place] [id number] Crystal D Jaoko [id number] Crystal D Jaoko 09/01/2022 1 [place] [id number] Crystal D Jaoko [id number] Crystal D Jaoko 07/06/2023 1 [place] [id number] Crystal D Jaoko [id number] Crystal D Jaoko 06/20/2024 1 [place] [id number] Crystal D Jaoko [id number] Crystal D Jaoko Notes Date Note Type Note Provider Name and Address Organization Details Recorded Time 08/04/2022 text/html 1. Pt in office to discuss weight loss. States she plays pickle ball for exercise. Pt states she isn't following any specific diet, but trying to watch portion sizes. States she avoids fast food. AKIL Rivers [address], [place], [address], [employer] 08/04/2022 19:53:02 09/01/2022 text/html 08/01/22: 1. Pt i n office to discuss weight loss. States she plays [employer] ball for exercise. Pt states she isn't following any specific diet, but trying to watch portion sizes. States she avoids fast food.2. Pt c/o having stomach issues d/t having gallbladder removed several years ago. Pt states she has to watch when she eats while out b/c her food just runs right through her. Pt denies any abd pain, nausea or vomiting. AKIL Rivers [address], [place], [address], [employer] 09/01/2022 18:29:21 07/06/2023 text/html pt is here for m ed f/u FRANCIA Cordova [address], [place], [address], [employer] 07/08/2023 08:10:30 06/20/2024 text/html Crystal Mclain i s a 43 year old female patient here today to establish care. She was previously under the care of Buck Freitas. Her past medical history is significant for obesity. She was taking Wegovy and found this effective, she has been off for a few months and has been gaining weight. She has post-cholecystectomy syndrome. She is taking Creon She takes an oral contraceptive. Concerns with a knot on her right hip, states she has pain that is radiating down her right leg, would like a steroid injection. History of HS, does have a history of staph. Had to have this surgically drained and was taking daily antibiotics but is not taking anything now. Flu shot: declinesCOVID vaccines: x3Tdap: believes UTDWWE: 2024 at OBGYNMammogram orderedColonoscopy: recommended, patient declines AKIL Gaytan [address], [place], [address], [employer] 06/20/2024 10:21:12 OBGyn Episode No OBEpisode recorded.
--- NOTE | 2024-06-25 08:08 | ED_ITS ---
HPI - Head Injury General Chief complaint: Head Injury Stated complaint: fell in shower hit head Time Seen by Provider: 06/25/24 07:33 Source: patient, RN notes reviewed and old records reviewed Mode of arrival: ambulatory Limitations: no limitations History of Present Illness HPI Narrative: This is a 43 year old female who presents for evaluation of head injury and neck pain s/p fall. Patient states that she slipped and fell while she was in the shower at 6 am this morning. She states she hit back of her head on her vanity. She has knot to right posterior scalp. She states she went to work and when she arrived she was told she needed to come to ER for evaluation. She denies dizziness, nausea, vomiting. She does reports posterior headache and neck pain. She reports chronic neck issues and she is worried about her neck. She denies arm weakness, numbness or tingling. She does not take any blood thinners. Related Data Allergies Allergy/AdvReac Type Severity Reaction Status Date / Time No Known Allergies Allergy Verified 06/25/24 07:29 [facility] Past Medical History Medical History (Updated 06/25/24 @ 08:23 by Jamila Rehman MD) Chronic diarrhea Surgical History Surgical History H/O tubal ligation Hx of cholecystectomy Family History Family History Grandparent Diabetes mellitus Sibling Hypertension Social History Social History Smoking status: Never smoker Second hand tobacco smoke exposure: No Alcohol intake: current Exam Const: General: no acute distress and alert Orientation/consciousness: patient oriented x3 HENMT: Head: hematoma (right posterior hematoma) right occipital Teeth and gingiva: dentition normal Eyes: Conjunctivae: conjunctivae normal Pupils: Equal, round and reactive pupils present EOM: EOMs intact bilaterally Neck: Other: right posterior tenderness Chest: Chest palpation & inspection: normal inspection of the chest Resp: Effort & Inspection: normal respiratory effort Auscultation: clear to auscultation bilaterally Cardio: Rate: regular rate Rhythm: regular rhythm Heart sounds: no murmurs GI: GI Palp: Yes Soft to palpation Skin: General skin exam: normal color Rashes: no rashes Wounds: no wound s Neuro: General: patient oriented x3 and moves all extremities Cranial nerves: Yes CN's II-XII intact bilaterally Speech: normal speech Extrem: General: normal to inspection Psych: Mental Status: mental status grossly normal Affect: normal affect Attitude: cooperative Course Reevaluation(s) Reevaluation #1: I Discussed with patient her CT spine results show degenerative disease. She states she goes to a chiropractor. She does not have any other questions or concerns. Date: 06/25/24 Time: 08:23 Vital Signs Vital signs: Vital Signs Temperature 97.6 F 06/25/24 07:33 Pulse Rate 79 06/25/24 07:33 Respiratory Rate 18 06/25/24 07:33 Blood Pressure 134/75 06/25/24 07:33 Pulse Oximetry 96 06/25/24 07:33 Oxygen Delivery Room Air 06/25/24 07:33 Temperature 97.6 F 06/25/24 07:33 Pulse Rate 79 06/25/24 07:33 Respiratory Rate 18 06/25/24 07:33 Blood Pressure 134/75 06/25/24 07:33 Pulse Oximetry 96 06/25/24 07:33 Oxygen Delivery Room Air 06/25/24 07:33 MDM - Head Injury MDM Narrative Medical decision making narrative: Patient presented with head injury with posterior scalp hematoma. I discussed with patient that since she is only 43 and no blood thinners she is low risk for significant intracranial injury. Significant other at bedside and they state they prefer to get imaging to be safe and she states she is concerned about her neck due to her chronic neck issues. CT brain and cervical spine were ordered. Differential Diagnosis Differential diagnosis: Likely concussion without loss of consciousness, closed head injury, subarachnoid hematoma, postconcussion syndrome and subdural hematoma Imaging Data Radiologist's impression: ITS Impressions Cervical Spine CT 06/25/24 08:00 Impression: No fracture or subluxation of the cervical spine. Moderate degenerative change at C5-C6, as above. Head CT 06/25/24 08:00 Impression: No significant abnormality seen. Discharge Plan Discharge Clinical Impression: Closed head injury Qualifiers: Encounter type: initial encounter Qualified Code(s): S09.90XA - Unspecified injury of head, initial encounter Degenerative joint disease of cervical spine Qualifiers: Spinal osteoarthritis complication: unspecified spinal osteoarthritis Qualified Code(s): M47.812 - Spondylosis without myelopathy or radiculopathy, cervical region Patient Disposition: Home Condition: Stable Instructions: Antibiotic Form, Head Injury (ED) Additional Instructions: I recommend you follow up with your primary care provider as needed. Take tylenol or aleve as needed for pain. You can apply ice intermittently for your scalp swelling. Patient Language: Welsh Prescriptions: No Action betamethasone valerate 0.1 % cream 1 applic TOPICAL DAILY PRN (Reason: itching) Qty: 45 0RF Cholestyramine Light 4 gram powder in packet 4 g PO BID Qty: 180 0RF Rx Instructions: administer w/meal; avoid other meds within 1hr before or 4-6hr after dose Follow-up/Referrals: Ava Marino MD [Primary Care Provider] -
== END 2024-06-25 08:29 | disposition home or self-care (01) ==
PROVIDERS: Emergency Provider General Practice; PCP Family Medicine
DX: S00.03XA Contusion of scalp, initial encounter (principal); M47.812 Spondylosis without myelopathy or radiculopathy, cervical region; Z90.49 Acquired absence of other specified parts of digestive tract; W18.2XXA Fall in (into) shower or empty bathtub, initial encounter
CPT/HCPCS: 70450; 72125; 99284; L0140